=== PATIENT | female | born 1990 | race African-American/Black ===

== ENCOUNTER 2017-09-06 16:03 | Emergency (ER) | payer OTHER, SELFPAY ==
[2017-09-06 16:35] LABS: #Basophils 0.1 thou/uL (0.0-0.2); #Monocytes 0.6 thou/uL (0.11-0.59); #Neutrophils 2.7 thou/uL (1.40-6.50); %Basophils 2.2 % (0.0-1.0); %Eosinophils 0.6 % (0.0-10.0); %Lymphocytes 36.7 % (21.0-51.0); %Monocytes 10.7 % (0.0-10.0); %Neutrophils 49.8 % (42.0-75.0); Hemoglobin 12.5 g/dL (12.0-16.0); Mean Corpuscular HGB CONC 34.3 g/dL (32.0-36.0); Mean Corpuscular Hemoglobin 31.2 pg (27.0-31.0); Mean Corpuscular Volume 90.8 fl (81.0-99.0); Mean Platelet Volume 7.8 fL (7.4-10.4); Platelet Count 258 thou/uL (130-400); RBC Distribution Width 11.9 % (11.5-14.5); Red Blood Cell (RBC) Count 4.01 mill/uL (4.20-5.40); White Blood Cell (WBC) Count 5.4 thou/uL (4.8-10.8)
[2017-09-06 16:49] LABS: Bilirubin Small (Negative); Blood, Urine Large (Negative); Clarity Slightly Cloudy (Clear); Glucose, Urine (Dipstick) Negative (Negative); Leukocyte Negative (Negative); Nitrite Negative (Negative); Protein, Urine (Dipstick) Negative (Neg-Trace); pH, Urine 5.5 (5.0-9.0)
[2017-09-06 16:50] LABS: Specific Gravity, Urine 1.028 (1.002-1.036)
[2017-09-06 16:56] LABS: RBC/HPF 0-3 HPF (0-3); WBC/HPF 0-3 HPF (0-3)
[2017-09-06 16:57] LABS: Bacteria/HPF 2+ HPF (None Seen); Hyaline Casts/LPF 0-3 HYALINE CAST LPF (0-3 Hyaline)
[2017-09-10 01:02] LABS: Chlamydia by PCR Not Detected (NotDetected); GC by PCR Not Detected (NotDetected)
== END 2017-09-06 18:03 | disposition home or self-care (01) ==
LOC: SCSER 16:03
DX: O20.0 Threatened abortion (principal); O23.41 Unspecified infection of urinary tract in pregnancy, first trimester; Z3A.01 Less than 8 weeks gestation of pregnancy
CPT/HCPCS: 36415; 81003; 81015; 84702; 85025; 87480; 87491; 87510; 87591; 87660

== ENCOUNTER 2021-06-03 15:38 | Emergency (ER) | payer OTHER | END 2021-06-03 16:15 | disposition home or self-care (01) | LOC: ERS 15:38 | DX: H10.9 Unspecified conjunctivitis (principal) | CPT/HCPCS: 99283 ==

== ENCOUNTER 2021-06-24 07:23 | Emergency (ER) | payer OTHER | END 2021-06-24 08:09 | disposition home or self-care (01) | LOC: ERS 07:23 | DX: M54.42 Lumbago with sciatica, left side (principal); F17.210 Nicotine dependence, cigarettes, uncomplicated | CPT/HCPCS: 99283 ==

== ENCOUNTER 2021-06-30 08:40 | Emergency (ER) | payer OTHER | END 2021-06-30 09:30 | disposition home or self-care (01) | LOC: ERS 08:40 | DX: M79.672 Pain in left foot (principal); F17.210 Nicotine dependence, cigarettes, uncomplicated ==

== ENCOUNTER 2022-02-08 20:39 | Emergency (ER) | payer BC, OTHER ==
[2022-02-08] MEDS ORDERED: Bupivacaine 0.25% 10 ML VIAL ONE (23:53)
== END 2022-02-09 00:12 | disposition home or self-care (01) ==
LOC: ERS 20:39
DX: K02.9 Dental caries, unspecified (principal); K03.81 Cracked tooth; F17.210 Nicotine dependence, cigarettes, uncomplicated
CPT/HCPCS: 64400; S0020